=== PATIENT | male | born 1995 | race Caucasian/White ===

== ENCOUNTER 2018-12-16 19:25 | Emergency (ER) | payer SELFPAY ==
[2018-12-16 19:39] VITALS: BP 151/89; PULSE 70; RESP 16; TEMP 98.2; O2SAT 100
[2018-12-16] MEDS ORDERED: Lidocaine 5% Patch TD STA (20:09)
[2018-12-16] MEDS ORDERED: Lidocaine 5% Patch TD ONE (20:28)
--- NOTE | 2018-12-16 21:03 | C.PDOC ---
History Of Present Illness 23 y/o male presents to the ER complaining of left sided lower back pain which has been present for the past 3 days. Patient states that he was playing basketball when he felt "crack." Patient reports that the pain is worse with walking and movement. Denies having neurological deficits, urinary retention, and bowel/bladder incontinence. Time Seen by Provider: 12/16/18 19:48 Chief Complaint (Nursing): Back Pain History Per: Patient History/Exam Limitations: no limitations Onset/Duration Of Symptoms: Days Current Symptoms Are (Timing): Still Present Severity: Moderate Past Medical History Reviewed: Historical Data, Nursing Documentation, Vital Signs Vital Signs: Last Vital Signs Temp 98.2 F 12/16/18 19:37 Pulse 70 12/16/18 19:37 Resp 16 12/16/18 19:37 BP 151/89 H 12/16/18 19:37 Pulse Ox 100 12/16/18 19:37 - Medical History PMH: No Chronic Diseases Surgical History: No Surg Hx - [facility] Procedures CLOSURE SKIN & SUBCUTANEOUS NEC (02/13/15) DPT ADMINISTRATION (02/13/15) Family History: States: No Known Family Hx - Social History Hx Tobacco Use: No Hx Alcohol Use: No Hx Substance Use: No - Immunization History Hx Tetanus Toxoid Vaccination: No Hx Influenza Vaccination: No Hx Pneumococcal Vaccination: No Review Of Systems Except As Marked, All Systems Reviewed And Found Negative. Genitourinary: Negative for: Dysuria, Incontinence, Hematuria Musculoskeletal: Positive for: Back Pain Physical Exam - Physical Exam Appears: Non-toxic, No Acute Distress Skin: Normal Color, Warm, Dry Head: Atraumatic, Normacephalic Eye(s): bilateral: Normal Inspection Nose: Normal Oral Mucosa: Moist Neck: Supple Chest: Symmetrical Back: Other (tenderness to posterior aspect of left back) Neurological/Psych: Oriented x3, Normal Speech, Normal Motor, Normal Sensation ED Course And Treatment O2 Sat by Pulse Oximetry: 100 - Other Rad LS spine xray X-Ray: Interpreted by Me Interpretation: No acute finding Progress Note: Patient treated with Toradol IM and Lidoderm Patch.[id number] Spine ordered and reviewed. On re-evaluation patient feels better, tolerates po and is stable to be d/c home with PMD follow up. Disposition - Disposition Disposition: HOME/ ROUTINE Disposition Time: 21:00 Condition: STABLE Additional Instructions: Follow up with PMD within 2-3 days. Return to ED if feel worse. Prescriptions: Lidocaine 5% [Lidoderm] 1 patch TP DAILY #30 patch Ibuprofen [Motrin Tab] 600 mg PO Q8 #30 tab diaZEpam [Valium] 2 mg PO QPM #7 tab Instructions: Lumbar Muscle Strain (DC) Forms: [employer] (Moz[place]ican) - Clinical Impression Clinical Impression: Low back strain - PA / INTERN ARCHITECT / Resident Statement MD/DO has reviewed & agrees with the documentation as recorded. - Scribe Statement The provider has reviewed the documentation as recorded by the Kisha Mccloud Provider Attestation All medical record entries made by the Kisha were at my direction and personally dictated by me. I have reviewed the chart and agree that the record accurately reflects my personal performance of the history, physical exam, medical decision making, and the department course for this patient. I have also personally directed, reviewed, and agree with the discharge instructions and disposition.
[2018-12-16] MEDS ORDERED: Albuterol 0.083% Inhal Sol (2.5 mg/3 mL) UD ONE (21:16)
--- NOTE | 2018-12-17 10:49 | RAD ---
Date of service: 12/16/2018 PROCEDURE: Radiographs of the Lumbar Spine. HISTORY: pain COMPARISON: No prior. TECHNIQUE: 5 views obtained. FINDINGS: BONES: Normal alignment. No listhesis. No fracture. DISC SPACES: Minimal disc space narrowing L5-S1. OTHER FINDINGS: Stool retention. IMPRESSION: No fracture or subluxation. Minimal early degenerative disc space narrowing posteriorly L5-S1. Moderate stool retention.
== END 2018-12-16 21:15 | disposition home or self-care (01) ==
LOC: C.ER 19:25
DX: S39.012A Strain of muscle, fascia and tendon of lower back, initial encounter (principal); Y93.67 Activity, basketball
CPT/HCPCS: 72100; 96372; 99283; J1885